=== PATIENT | male | born 1935 | race Caucasian/White ===

== ENCOUNTER 2016-10-29 01:31 | Emergency (ER) | payer MEDICARE, OTHER | END 2016-10-29 04:22 | disposition home or self-care (01) | LOC: ER1 01:31 | DX: Z46.6 Encounter for fitting and adjustment of urinary device (principal); I10 Essential (primary) hypertension | CPT/HCPCS: 51702; 99283 ==

== ENCOUNTER 2016-11-02 18:44 | Emergency (ER) | payer MEDICARE, OTHER | END 2016-11-02 22:00 | disposition home or self-care (01) | LOC: ER1 18:44 | DX: N39.0 Urinary tract infection, site not specified (principal); B37.9 Candidiasis, unspecified; T83.098A Other mechanical complication of other urinary catheter, initial encounter; F17.220 Nicotine dependence, chewing tobacco, uncomplicated | CPT/HCPCS: 81001; 99283 ==

== ENCOUNTER 2016-11-29 00:57 | Emergency (ER) | payer MEDICARE, OTHER | END 2016-11-29 05:50 | disposition home or self-care (01) | LOC: ER1 00:57 | DX: T83.018A Breakdown (mechanical) of other urinary catheter, initial encounter (principal); R10.30 Lower abdominal pain, unspecified; I10 Essential (primary) hypertension; F17.210 Nicotine dependence, cigarettes, uncomplicated | CPT/HCPCS: 51702; 99283 ==

== ENCOUNTER 2016-12-17 23:08 | Emergency (ER) | payer MEDICARE, OTHER | END 2016-12-18 02:56 | disposition home or self-care (01) | LOC: ER1 23:08 | DX: T83.018A Breakdown (mechanical) of other urinary catheter, initial encounter (principal); N39.0 Urinary tract infection, site not specified | CPT/HCPCS: 51702; 99283 ==